=== PATIENT | male | born 1995 | race Caucasian/White ===

== ENCOUNTER 2018-08-17 11:45 | Observation (INO) | payer OTHER ==
[~2018-08-17 11:45] MED LIST: Buffered Lidocaine 1% SYRIN* 1 ML/SYRINGE INTRADERM ONE; Dexamethasone IV* 4 MG/ML 1 ML (4 MG) IV SLOW PU ONE; Famotidine TAB* 20 MG PO ONE; Lactated Ringers 1000 ML Bag* 1,000 ML IV SCH; Lidocaine 2% PF * 5 ML VIAL ONE; Midazolam* 1 MG/ML 2 ML VIAL (2 MG) ONE; Propofol* 10 MG/ML 20 ML BTL ONE; Succinylcholine* 20 MG/ML 10 ML VIAL ONE; fentaNYL* 50 MCG/ML 5 ML VIAL (250 MCG VIAL) ONE
[2018-08-17] MEDS ORDERED: Lidocain 1% EPI 1:100,000 * 30 ML MDV ONE (12:14)
[2018-08-17] MEDS ORDERED: Dexamethasone IV* 4 MG/ML 1 ML (4 MG) ONE (12:18)
[2018-08-17] MEDS ORDERED: Buffered Lidocaine 1% SYRIN* 1 ML/SYRINGE INTRADERM ONE (12:18)
[2018-08-17] MEDS ORDERED: Famotidine TAB* 20 MG ONE (12:18)
[2018-08-17] MEDS ORDERED: fentaNYL* 50 MCG/ML 2 ML VIAL (100 MCG VIAL) IV PRN (15:22)
[2018-08-17] MEDS ORDERED: Naloxone* 0.4 MG/ML 1 ML VIAL IV PRN (15:22)
[2018-08-17] MEDS ORDERED: PROCHLORPERAZINE INJ 5 MG/ML 2 ML VIAL IV PRN (15:22)
[2018-08-17] MEDS ORDERED: HYDROmorphone INJ1* 1 MG/ML SYRINGE IV PRN (15:22)
[2018-08-17] MEDS ORDERED: Acetaminophen IV 1GM/100ML * 1,000 MG/100 ML VIAL IVPB ONE (15:22)
[2018-08-17] MEDS ORDERED: oxyCODONE TAB* 5 MG TAB PO PRN (15:22)
[2018-08-17] MEDS ORDERED: DiMENhydriNATE IV* 50 MG/ML VIAL IV PUSH PRN (15:22)
[2018-08-17] MEDS ORDERED: Acetaminophen IV 1GM/100ML * 100 ML ONE (16:57)
[2018-08-17] MEDS ORDERED: HYDROmorphone INJ1* 1 MG/ML SYRINGE ONE (17:26)
[2018-08-17] MEDS ORDERED: HYDROcodone/ACET. 7.5/325 LIQ* 15 ML UDC ONE (17:28)
[2018-08-17] MEDS ORDERED: HYDROcodone/ACETAMIN 5-325 MG* 1 TAB PO PRN ×2 (19:21→19:22)
[2018-08-17] MEDS ORDERED: Ibuprofen TAB* 800 MG PO PRN (19:21)
[2018-08-17] MEDS ORDERED: Ondansetron INJ* 2 MG/ML VIAL IV PRN (19:26)
[2018-08-17] MEDS ORDERED: Ondansetron TAB* 4 MG PO PRN (19:26)
[2018-08-17] MEDS ORDERED: Calcium Gluconate INJ* 1 GM in NS 0.9% 50 ML* 50 ML IV PRN (19:27)
--- NOTE | 2018-08-17 19:38 | CONS ---
CC: Dr. Goode* CONSULTATION REPORT: DATE OF CONSULT: 08/17/18 IT TELECOM TECHNICIAN: Dr. Goode. SERVICE REQUESTING CONSULTATION: ENT. REASON FOR CONSULTATION: Medical co-management/calcium check. SOURCE OF INFORMATION: History obtained from interview with the patient and his mother, review of past medical records. RELIABILITY: Good. 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 Pritchard on 08/17/18 without complications. 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 There were no complications during the course of the surgery. Official operative report is pending. However, verbally Dr. Pritchard relayed that parathyroid glands were all visualized; minimal blood loss. PAST MEDICAL HISTORY: Includes history of herniated intervertebral disks and capillary thyroid cancer. PAST SURGICAL HISTORY: Tonsillectomy. HOME MEDICATIONS: None. ALLERGIES: Listed to PENICILLIN. It is noted he has never had a PENICILLIN allergy; however, his mother had life-threatening PENICILLIN allergies and she notes all of her children was PENICILLIN as an allergy because they have a preference to avoid it. FAMILY HISTORY: Notable for absence of CAD, CVA. SOCIAL HISTORY: dean for student affairs in [place], smokes approximately 1 cigar per month and smokes a pipe less than one time per month, drinks 1 time per week, typically 3 alcoholic beverages. No illicit drug use. In fact, he is quite concerned about utilizing narcotics during the course of the hospital stay because he has an "addictive personality." REVIEW OF SYSTEMS: Positive pain, status post procedure otherwise all other systems reviewed negative. PHYSICAL EXAM: Vitals: 153/94 in the PACU, heart rate is 90, respiratory rate 16, he is 94% on room air, T-max 98.4. General: Obese man lying approximately 35 degrees in bed, in no apparent distress, has cooling pad over his neck. Oropharynx is clear. Dry mucous membranes. Sclerae are anicteric. He has a DEBRA drain in the surgical site and site is clean, dry, and intact. Heart rate is regular rate and rhythm. No murmurs, rubs, or gallops. Lungs: Clear to auscultation bilaterally. His abdomen soft, nontender, and nondistended. Extremities: Warm and well perfused. He has trace bilateral lower extremity pitting edema. He is A and O x3. DIAGNOSTIC STUDIES/LAB DATA: Labs reviewed. Calcium 9.0. IMAGINING: No radiographic imaging to review. ASSESSMENT AND PLAN: This is a 22-year-old man recently diagnosed with papillary carcinoma, status post total thyroidectomy without complication. Status post total thyroidectomy, calcium checks overnight, timing has already been ordered by Dr. Pritchard. Essentially one time this evening around 7 p.m. then again overnight in the morning. For calcium less than 7.2, administered 1 g calcium gluconate. DEBRA drain out in the morning by Dr. Pritchard. Pain control as necessary. The patient would like to avoid opioids; however, after discussion with this author, he is amenable to using them in low-dose as if necessary. DVT prophylaxis SCDs. Disposition: Likely home tomorrow. [id number]/[facility] #: [id number] MTDD
[2018-08-17] MEDS ORDERED: Lactated Ringers 1000 ML Bag* 1,000 ML IV SCH (20:00)
--- NOTE | 2018-08-17 20:35 | OP ---
OPERATIVE REPORT: DATE OF OPERATION: 08/17/18 DATE OF : 89 SURGEON: Arias Pritchard MD TECHNICIAN HELPER INSTRUMENT: Barrie Nolan MD ANESTHESIA: General. PRE-OP DIAGNOSIS: Malignant neoplasm, thyroid gland. POST-OP DIAGNOSIS: Malignant neoplasm, thyroid gland. OPERATIVE PROCEDURE: Total thyroidectomy. ESTIMATED BLOOD LOSS: Less than 30 cc. SPECIMEN: Total thyroid to Pathology. FLUIDS: 1500 mL. INDICATIONS: This is a 22-year-old male with recently diagnosed papillary thyroid carcinoma involvin g at least 2 nodules, 1 on each side of the thyroid. DESCRIPTION OF PROCEDURE: On 08/17/18, the patient was brought to the operating room. General anest hesia was induced and a NIM oral endotracheal tube was placed. The positioning of the tube was confir med with GlideScope. The grounding electrodes were placed, and the tube was found to be in good work ing order. The intended incision site was then cleansed with alcohol, marked, and injected with appr oximately 5 cc of 1% lidocaine with 1:100,000 epinephrine. The patient was then prepped with Betadin e and draped sterilely. A time-out was performed. A #15 blade was used to incise skin. Subcutaneou s fat and platysma was divided with the Bovie cautery. Subplatysmal flaps were raised superiorly and inferiorly. The Zana self-retaining retractor was then placed into the wound. Strap muscles were divided vertically along the median raphe. The left side of the thyroid was then exposed first by e levating the strap muscles off of it. The superior pole region was explored first. The superior vas cular pedicle was ligated with hemoclips and divided with the LigaSure device. Once the superior gideon e was controlled, attention was turned inferiorly. The tracheoesophageal groove was explored until t he recurrent laryngeal nerve was found. This was used as a guide for further dissection and was conf irmed with the nerve stimulator. The inferior vascular pedicle was identified and divided at its ter katya branches as close to the thyroid as possible in an attempt to preserve parathyroid blood supply . One parathyroid was seen on the left side and preserved with its blood supply intact. The middle thyroid vein was ligated with Hemoclips and divided and the gland was reflected medially, ultimately being rolled off, freed from the Escamilla's ligament with the bipolar cautery leaving a very small cuff of thyroid tissue behind. The gland was then elevated off of the anterior wall of the trachea. The strap muscles were then elevated off of the right lobe of the thyroid. Superior vascular pedicle on the right was identified, ligated with Hemoclips, and divided with the LigaSure device. The tracheoes ophageal groove was then explored inferiorly until the recurrent laryngeal nerve was identified. Its identity was confirmed with the nerve stimulator. Inferior vascular pedicle branches were ligated a s close as possible to the capsule in order to preserve parathyroid blood supply. At least, 1 parath yroid was seen and preserved with its blood supply intact. The middle thyroid vein was ligated with Hemoclips and divided and the thyroid was rolled medially, ultimately freed off of Escamilla's ligament w ith a bipolar cautery. At the conclusion of the case, both nerves were visually intact and both stim ulated. The wound was copiously irrigated and multiple Valsalva's were performed. Small areas of bl eeding were controlled with bipolar cautery. A piece of Surgicel was placed in the region of the Matt ry's ligament on either side of the trachea. A #7 DEBRA was then placed and it was secured with 3-0 Pro umm. Strap muscles were reapproximated with 4-0 Vicryl. The platysma was reapproximated with 4-0 V icryl, and subcutaneous fat and dermis were reapproximated with 4-0 Vicryl. Skin was then closed wit h 4-0 nylon using a running subcuticular stitch. Mastisol and Steri-Strips were applied. The DEBRA was placed on bulb suction. The patient was then returned to the care of the anesthesiologist, extubated , and delivered to the PACU in stable condition. [id number]/[facility] #: [id number]
[2018-08-17] MEDS ORDERED: Calcium Carbonate TAB* 1250 MG (CALCIUM 500 MG) PO SCH (21:00)
[2018-08-18 09:35] VITALS: BP 134/60
--- NOTE | 2018-08-18 20:48 | DS ---
CC: Dr. Goode; Dr. Pritchard * DISCHARGE SUMMARY: DATE OF ADMISSION: 08/17/18 DATE OF DISCHARGE: 08/18/18 DISPOSITION ON DISCHARGE: Home. CONDITION ON DISCHARGE: Good. PRIMARY DIAGNOSIS: Papillary thyroid carcinoma, status post total thyroidectomy by Dr. Pritchard on 08/17/18. MEDICATIONS ON DISCHARGE: Thyroid hormone replacement per Dr. Goode. This was discussed with Dr. Pritchard, who communicated with Dr. Goode to ensure appropriate dose is prescribed. 1. Percocet 5/325 one to two tabs every 6 hours as needed. 2. Calcium carbonate 1200 mg 3 times a day. WOUND CARE: It is okay to get surgical site wet Steri-Strips and stitches in the office in a week. ACTIVITY: No strenuous activity for 1 week. 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 Pritchard on 08/17/18. He was monitored in the hospital for the development of hypocalcemia. His immediate postop value was 9, it nadired to 8.1 prior to discharge. He did not require any intervention. There were no complications during the patient's hospital stay. Discharge instructions were discussed between Dr. Pritchard, the patient as well as with this author. At followup please; 1. As indicated above, Steri-Strips and stitches removed in physician's office. 2. Calcium monitoring and thyroid replacement per tea tree farm worker and surgical team. Reasons to return to the hospital included but not limited to worsening pain, bleeding, erythema around the site, fever, chills, night sweats, chest pain, shortness of breath, nausea, vomiting, lightheadedness, loss of consciousness, inability to obtain or tolerate medications discussed with the patient. TIME SPENT: Greater than 45 minutes was spent on discharge of this patient, greater than half was spent [id number] with the patient. [id number]/[facility] #: [id number] [facility] HOSPITALJosé
== END 2018-08-18 16:00 | disposition home or self-care (01) ==
LOC: OR 11:45 → SSU 18:41
PROVIDERS: ADMIT Otolaryngology; ATTEND Otolaryngology
DX: C73 Malignant neoplasm of thyroid gland (principal); Z88.0 Allergy status to penicillin; F17.220 Nicotine dependence, chewing tobacco, uncomplicated
CPT/HCPCS: 36415; 82310; 88307; 96374; 96375; A9270-GY; G0378; J0330; J0610; J1100; J1170; J2250; J2704; J3010